=== PATIENT | female | born 1985 | race Caucasian/White ===

== ENCOUNTER 2018-07-02 19:57 | Emergency (ER) | payer SELFPAY ==
[2018-07-02 20:19] VITALS: BP 151/97
--- NOTE | 2018-07-02 20:43 | EDM.PDOC ---
ED HPI GENERAL MEDICAL PROBLEM - General Chief Complaint: ENT Problem Stated Complaint: TOOTH Time Seen by Provider: 07/02/18 20:25 Source of Information: Reports: Patient, Old Records History Limitations: Reports: No Limitations - History of Present Illness INITIAL COMMENTS - FREE TEXT/NARRATIVE: 32 yo female here with dental pain since '. Is here as ibuprofen and Ambesol is not controlling her pain. No fever. Goes to a dentist in [place]. Onset: Gradual Onset Date: 06/28/18 Duration: Day(s):, Getting Worse Location: Reports: Face (R upper jaw) Quality: Reports: Ache Severity: Moderate Improves with: Reports: Medication Worsens with: Reports: Other (time/cold exposure) Context: Reports: Other (See HPI) Associated Symptoms: Reports: No Other Symptoms Treatments [employer]: Reports: NSAIDS, Other (see below) (Ambesol) tooth Pain Score (Numeric/FACES): 7 - Related Data Allergies Allergy/AdvReac Type Severity Reaction Status Date / Time No Known Allergies Allergy Verified 07/02/18 20:22 Home Meds: Home Meds Ibuprofen 400 mg PO Q4H PRN 05/22/15 [History] Citalopram Hydrobromide [Celexa] 40 mg PO QAM 12/15/15 [History] LORazepam [Ativan] 0.5 mg PO TID PRN 12/15/15 [History] Past Medical History HEENT History: Reports: Other (See Below) Other HEENT History: dental problems Psychiatric History: Reports: Anxiety Endocrine/Metabolic History: Reports: Obesity/BMI 30+ - Infectious Disease History Infectious Disease History: Reports: Chicken Pox Social & Family History - Tobacco Use Smoking Status *Q: Current Every Day Smoker Years of Tobacco use: 12 Packs/Tins Daily: 0.5 - Recreational Drug Use Recreational Drug Use: No ED ROS ENT - Review of Systems Review Of Systems: See Below Constitutional: Reports: No Symptoms HEENT: Reports: Dental Pain Respiratory: Reports: No Symptoms Cardiovascular: Reports: No Symptoms GI/Abdominal: Reports: No Symptoms : Reports: No Symptoms Musculoskeletal: Reports: No Symptoms Skin: Reports: No Symptoms Neurological: Reports: No Symptoms Psychiatric: Reports: No Symptoms ED EXAM, ENT - Physical Exam Exam: See Below Exam Limited By: No Limitations General Appearance: Alert, WD/WN, No Apparent Distress Eye Exam: Bilateral Eye: Normal Inspection Ears: Normal External Exam, Normal Canal, Hearing Grossly Normal Nose: Normal Inspection, No Blood Mouth/Throat: Normal Inspection, Normal Lips, Normal Oropharynx, Dental Pain (R maxillary premolar is tender with percussion. Has a filling. No visible decay. ) , Dental Tenderness. No: Lip Swelling Head: Atraumatic, Normocephalic. No: Facial Swelling, Facial Tenderness Neck: Normal Inspection, Supple, Non-Tender. No: Lymphadenopathy (R), Lymphadenopathy (L) Extremities: Normal Inspection, Normal Range of Motion, Non-Tender Neurological: Alert, Oriented, CN II-XII Intact, Normal Cognition, No Motor/ Sensory Deficits Psychiatric: Normal Affect, Normal Mood Skin: Warm, Dry, Intact, Normal Color, No Rash Course - Vital Signs Last Recorded V/S: Last Vital Signs Temp 36.0 C 07/02/18 20:18 Pulse 88 07/02/18 20:18 Resp 16 07/02/18 20:18 BP 151/97 H 07/02/18 20:18 Pulse Ox 96 07/02/18 20:18 Departure - Departure Time of Disposition: 20:50 Disposition: Home, Self-Care 01 Condition: Fair Clinical Impression: Pain, dental - Discharge Information *PRESCRIPTION DRUG MONITORING PROGRAM REVIEWED*: No *COPY OF PRESCRIPTION DRUG MONITORING REPORT IN PATIENT JAYMIE: No Referrals: PCP,None [Primary Care Provider] - Additional Instructions: Continue present cares. Add acetaminophen up to 1000 mg every 6 hrs for added relief. If more pain relief is needed at night substitute [place] for the acetaminophen. Take Penicillin every 6 hrs as directed. See your dentist renae.
== END 2018-07-02 21:00 | disposition home or self-care (01) ==
LOC: JP.ED 19:57
DX: K08.89 Other specified disorders of teeth and supporting structures (principal)
CPT/HCPCS: 99283